=== PATIENT | female | born 1950 | race Caucasian/White ===

== ENCOUNTER 2021-02-13 23:40 | Inpatient (IN) | payer MEDICARE, OTHER ==
[~2021-02-13] VITALS: Ht 152.4 cm; Wt 97.1 kg
[~2021-02-13 23:40] MED LIST: CARV25TA PO; NEXIUM; SYNTHROID; WELLBUTRIN
--- NOTE | 2021-02-14 | NUR ---
Dr. Bain at bedside for MSE.
[2021-02-14] MEDS ORDERED: IV NORMAL SALINE 1000 ML BAG IV ONE ×2 (00:15→04:00)
[2021-02-14 00:27] LABS: HEMATOCRIT 44.2 % (31.2-41.9); MEAN CORPUSCULAR HEMOGLOBIN 29.5 uug (24.7-32.8); MEAN CORPUSCULAR VOLUME 92.2 fL (75.5-95.3); PLATELET COUNT (AUTO) 256 K/uL (179-408)
--- NOTE | 2021-02-14 00:30 | NUR ---
Pt provided urine sample, sent to lab.
[2021-02-14 00:40] LABS: CREATININE 1.1 mg/dL (0.6-1.3); POTASSIUM 4.1 mmol/L (3.5-5.1)
[2021-02-14 00:52] LABS: BILIRUBIN,DIRECT 0.1 mg/dL (0.0-0.2); BILIRUBIN,TOTAL 0.3 mg/dL (0.2-1.0); TOTAL PROTEIN, SERUM 7.6 g/dL (6.4-8.2)
[2021-02-14 00:57] LABS: *BILIRUBIN,URIN NEGATIVE (NEGATIVE); *CLARITY,URINE CLOUDY (CLEAR); *COLOR,URINE YELLOW (YELLOW); *KETONES,URINE TRACE (NEGATIVE); *UROBILINOGEN,URINE 0.2 E.U./dl (NORMAL); LEUKOCYTE ESTERASE ,URINE 1+ (NEGATIVE); NITRITE, URINE NEGATIVE (NEGATIVE); PH,URINE 5.5 (5.0-8.0); UGLUCOSE NEGATIVE (NEGATIVE)
[2021-02-14 01:05] LABS: *BLOOD, URINE TRACE (NEGATIVE)
[2021-02-14 01:14] LABS: WBC,URINE 20-50 /HPF (0-3)
[2021-02-14 01:15] LABS: BACTERIA,URINE MODERATE /HPF (NONE SEEN); SQUAMOUS EPITHELIAL CELL,UR MANY /HPF (NONE SEEN); URIC ACID CRYSTALS,URINE MODERATE /HPF (NONE SEEN)
[2021-02-14] MEDS ORDERED: CEFTRIAXONE 1 G in IV DEXTROSE 5% 50 ML IV ONE (01:45)
[2021-02-14] MEDS ORDERED: MAGNESIUM HYDROXIDE 30 ML LIQUID UDC PO PRN (01:45)
[2021-02-14] MEDS ORDERED: ONDANSETRON 4 MG/2 ML VIAL IV PRN (01:45)
[2021-02-14] MEDS ORDERED: CEFTRIAXONE /D5W 50ML IVPB **ER PYXIS IV ONE ×2 (02:05→15:42)
[2021-02-14] MEDS ORDERED: PANTOPRAZOLE SODIUM 40 MG VIAL IV ONE (02:15)
[2021-02-14] MEDS ORDERED: ONDANSETRON 4 MG/2 ML VIAL IV ONE (02:15)
[2021-02-14] MEDS ORDERED: PANTOPRAZOLE SODIUM 40 MG VIAL ONE (02:19)
[2021-02-14] MEDS ORDERED: ONDANSETRON 4 MG/2 ML VIAL ONE (02:19)
[2021-02-14] MEDS ORDERED: LEVO50TA PO (02:27)
[2021-02-14] MEDS ORDERED: CARV12.52 PO (02:27)
[2021-02-14] MEDS ORDERED: OMEP40CA21 PO (02:27)
[2021-02-14] MEDS ORDERED: janumet PO (02:27)
[2021-02-14] MEDS ORDERED: CLON1TAB12 PO (02:28)
[2021-02-14] MEDS ORDERED: PREG100C PO (02:28)
[2021-02-14] MEDS ORDERED: CARVEDILOL 3.125 MG TABLET PO ONE (03:45)
[2021-02-14] MEDS ORDERED: CARVEDILOL 12.5 MG TABLET ONE ×2 (03:47→15:31)
--- NOTE | 2021-02-14 07:05 | NUR ---
Report given to Hali sanders.
--- NOTE | 2021-02-14 07:45 | NUR ---
Pt c/o migraine headache and requesting to have Fioricet. Place a call to Dr Rogers, order recieved.
[2021-02-14] MEDS: BUTALB/ACETAMINOPHEN/CAFFEINE CAPSULE PO PRN (08:29)
[2021-02-14] MEDS ORDERED: BUTALB/ACETAMINOPHEN/CAFFEINE CAPSULE ONE (08:32)
[2021-02-14] MEDS: IV NS 1000 ML 1,000 ML IV PRN ×2 (08:39→20:04)
[2021-02-14] MEDS: ENOXAPARIN SODIUM 40 MG/0.4 ML DISP.SYRIN SQ SCH ×2 (09:00→09:35)
[2021-02-14 09:27] LABS: HEMATOCRIT 38.1 % (31.2-41.9); MEAN CORPUSCULAR HEMOGLOBIN 30.1 uug (24.7-32.8); MEAN CORPUSCULAR VOLUME 92.4 fL (75.5-95.3); PLATELET COUNT (AUTO) 211 K/uL (179-408)
--- NOTE | 2021-02-14 09:30 | NUR ---
Pt states feeling better and her migraine headache is gone.
[2021-02-14 09:42] LABS: MAGNESIUM 1.6 mg/dL (1.8-2.4); PHOSPHOROUS 2.9 mg/dL (2.5-4.9); POTASSIUM 4.2 mmol/L (3.5-5.1)
[2021-02-14] MEDS ORDERED: ENOXAPARIN SODIUM 40 MG/0.4 ML DISP.SYRIN SQ ONE (09:42)
--- NOTE | 2021-02-14 09:44 | NUR ---
Pt refuse taking Lovenox, states having bad gastritis and worried about bleeding. Pt able to walk w/o assisst.
--- NOTE | 2021-02-14 10:00 | NUR ---
Dr Rogers made awre of Pt's refusal of Lovenox med. No new order received.
--- NOTE | 2021-02-14 10:06 | NUR ---
Patient is resting comfortably in bed with eyes closed, NAD noted.
--- NOTE | 2021-02-14 13:10 | NUR ---
Pt IV on RT AC leaking, removed and place a new HL on RT FA.
--- NOTE | 2021-02-14 13:25 | NUR ---
Spoke to Dr Rogers regarding Pt's home meds.
[2021-02-14] MEDS ORDERED: CLONAZEPAM 0.5 MG TABLET PO PRN (13:45)
--- NOTE | 2021-02-14 15:25 | NUR ---
Pt reqested to have her medication, Coreg 12.5 mg now, since she feels palpitation if not taking it. Coreg 12.5 mg Po given.
[2021-02-14] MEDS: CARVEDILOL 12.5 MG TABLET PO SCH (15:28)
[2021-02-14] MEDS ORDERED: AZITHROMYCIN 500MG/ D5W 250ML IVPB **ER PYXIS ONLY IV ONE (15:41)
--- NOTE | 2021-02-14 18:19 | NUR ---
This is an admission note for 70 year old female patient of Doctor _ from home for a urinary tract infection, possible sepsis. Temperature has been elevated 99.5, but is normal at this time. Will endorse care to next team nurse. Shayne Baldwin RN
[2021-02-14 18:40] VITALS: BP 172/74
[2021-02-14 20:00] VITALS: BP 138/55
[2021-02-14] MEDS: PREGABALIN 100 MG CAPSULE PO SCH (20:05)
[2021-02-14] MEDS: ACIDOPHILUS/BULGARICUS CHEW TAB PO SCH (21:05)
[2021-02-15] MEDS ORDERED: CEFTRIAXONE /D5W 50ML IVPB **ER PYXIS IV ONE (02:50)
[2021-02-15] MEDS: CEFTRIAXONE 1 G in IV DEXTROSE 5% 50 ML IV SCH (03:04)
[2021-02-15 04:00] VITALS: BP_SYST 114; BP_SYST 121; BP_DIAS 57; BP_DIAS 63
--- NOTE | 2021-02-15 05:08 | NUR ---
Pt slept throughout the night. Denies pain or SOB. Able to make needs known. Patient is BRP and walks with a steady gait. Tolerated all medications given. No other issues or concerns at this time. Will endorse to day shift.
[2021-02-15] MEDS: ACIDOPHILUS/BULGARICUS CHEW TAB PO SCH ×3 (06:12→21:07)
[2021-02-15] MEDS: PANTOPRAZOLE SODIUM 40 MG TABLET.DR PO SCH (06:12)
[2021-02-15] MEDS: LEVOTHYROXINE SODIUM 50 MCG TABLET PO SCH (06:12)
[2021-02-15 06:34] LABS: HEMATOCRIT 37.1 % (31.2-41.9); MEAN CORPUSCULAR HEMOGLOBIN 30.2 uug (24.7-32.8); MEAN CORPUSCULAR VOLUME 92.2 fL (75.5-95.3); PLATELET COUNT (AUTO) 191 K/uL (179-408)
[2021-02-15 06:53] LABS: CREATININE 0.8 mg/dL (0.6-1.3); POTASSIUM 3.9 mmol/L (3.5-5.1)
[2021-02-15] MEDS: CALCIUM CARBONATE 600 MG TABLET PO SCH (08:01)
[2021-02-15] MEDS: CARVEDILOL 12.5 MG TABLET PO SCH ×2 (08:01→17:02)
[2021-02-15] MEDS: ENOXAPARIN SODIUM 40 MG/0.4 ML DISP.SYRIN SQ SCH ×2 (08:02→08:40)
[2021-02-15 11:39] VITALS: BP 98/59
[2021-02-15] MEDS ORDERED: INSULIN REGULAR, HUMAN 300 UNIT/3 ML VIAL SQ PRN (12:00)
[2021-02-15] MEDS ORDERED: DEXTROSE 50% 50 ML DISP.SYRIN IV PRN (12:00)
[2021-02-15] MEDS: BLOOD SUGAR DIAGNOSTIC 1 EACH STRIP VI SCH ×3 (12:10→20:04)
[2021-02-15] MEDS ORDERED: SUCRALFATE 1 G/10 ML LIQUID UDC GT SCH (12:15)
[2021-02-15 15:53] VITALS: BP 153/73
[2021-02-15] MEDS: SUCRALFATE 1 G TABLET PO SCH ×2 (16:23→20:00)
[2021-02-15] MEDS ORDERED: BUTALB/ACETAMINOPHEN/CAFFEINE CAPSULE PO PRN (16:30)
[2021-02-15] MEDS: BUTALB/ACETAMINOPHEN/CAFFEINE CAPSULE PO PRN (16:31)
[2021-02-15 20:00] VITALS: BP 147/72
[2021-02-15] MEDS: PREGABALIN 100 MG CAPSULE PO SCH (20:00)
[2021-02-15] MEDS: NYSTATIN POWDER 15 GM BOTTLE TOP SCH (20:04)
[2021-02-16] MEDS: CEFTRIAXONE 1 G in IV DEXTROSE 5% 50 ML IV SCH (01:09)
[2021-02-16 04:00] VITALS: BP 131/59
[2021-02-16] MEDS: ACIDOPHILUS/BULGARICUS CHEW TAB PO SCH ×3 (05:06→21:12)
[2021-02-16] MEDS: LEVOTHYROXINE SODIUM 50 MCG TABLET PO SCH (06:02)
[2021-02-16] MEDS: PANTOPRAZOLE SODIUM 40 MG TABLET.DR PO SCH (06:02)
[2021-02-16] MEDS: BLOOD SUGAR DIAGNOSTIC 1 EACH STRIP VI SCH ×4 (06:23→20:46)
[2021-02-16 07:27] LABS: HEMATOCRIT 40.1 % (31.2-41.9); MEAN CORPUSCULAR HEMOGLOBIN 30.4 uug (24.7-32.8); MEAN CORPUSCULAR VOLUME 91.1 fL (75.5-95.3); PLATELET COUNT (AUTO) 214 K/uL (179-408)
[2021-02-16] MEDS: SUCRALFATE 1 G TABLET PO SCH ×4 (07:30→20:40)
--- NOTE | 2021-02-16 07:30 | NUR ---
RECEIVED AWAKE IN BED IN PLEASANT MOOD. NO ACUTE DISTRESS. DENIES PAIN AT THIS TIME. SHE IS COMFORTABLE. BED LOW AND LOCKED. CALL LIGHT WITHIN REACH. WILL CONTINUE TO MONITOR.
[2021-02-16 07:50] LABS: CREATININE 0.8 mg/dL (0.6-1.3); POTASSIUM 3.9 mmol/L (3.5-5.1)
[2021-02-16] MEDS: CARVEDILOL 12.5 MG TABLET PO SCH ×2 (08:30→17:32)
[2021-02-16] MEDS: LINAGLIPTIN 5 MG TABLET PO SCH (08:31)
[2021-02-16] MEDS: CALCIUM CARBONATE 600 MG TABLET PO SCH (08:35)
[2021-02-16] MEDS: NYSTATIN POWDER 15 GM BOTTLE TOP SCH ×2 (09:24→20:51)
[2021-02-16 11:39] VITALS: BP 137/49
[2021-02-16 15:25] VITALS: BP 144/63
--- NOTE | 2021-02-16 18:46 | NUR ---
ALERT AND ORIENTED X4. NO ACUTE DISTRESS. DUE MEDS GIVEN AND NO ADVERSE REACTIONS NOTED. DENIES PAIN AT THIS TIME. NEEDS ATTENDED. WILL ENDORSE ACCORDINGLY.
[2021-02-16 20:03] VITALS: BP 141/58
[2021-02-16] MEDS: PREGABALIN 100 MG CAPSULE PO SCH (20:41)
[2021-02-17] MEDS: ACETAMINOPHEN 325 MG TABLET PO PRN ×2 (01:53→09:10)
[2021-02-17] MEDS: CEFTRIAXONE 1 G in IV DEXTROSE 5% 50 ML IV SCH (01:53)
[2021-02-17] MEDS ORDERED: hydrALAZINE HCL 50 MG TABLET PO PRN (03:45)
[2021-02-17 04:03] VITALS: BP 187/71
--- NOTE | 2021-02-17 04:54 | NUR ---
Patient alert and verbally responsive. No s/s of distress noted.On RA.Iv on right FA noted infiltrated. Dc'd line and inserted new Iv line on left FA 22g with good blood return. Infused IV ATB as ordered.No a/r noted.Patient c/o pain .Medicated with tylenol. BP noted >[address] Almanzar notified with new order received noted and carried out.
[2021-02-17] MEDS: ACIDOPHILUS/BULGARICUS CHEW TAB PO SCH ×2 (05:43→13:21)
[2021-02-17] MEDS: LEVOTHYROXINE SODIUM 50 MCG TABLET PO SCH (06:07)
[2021-02-17] MEDS: PANTOPRAZOLE SODIUM 40 MG TABLET.DR PO SCH (06:07)
[2021-02-17] MEDS: SUCRALFATE 1 G TABLET PO SCH ×2 (06:34→11:36)
[2021-02-17] MEDS: BLOOD SUGAR DIAGNOSTIC 1 EACH STRIP VI SCH ×2 (06:35→11:50)
--- NOTE | 2021-02-17 07:30 | NUR ---
RECEIVED RESTING BUT EASILY AROUSABLE. NO RESPIRATORY DISTRESS. IV INTACT. KEPT COMFORTABLE. BED LOW AND LOCKED. CALL LIGHT WITHIN REACH. WILL CONTINUE TO MONITOR.
[2021-02-17 07:58] LABS: HEMATOCRIT 41.3 % (31.2-41.9); MEAN CORPUSCULAR VOLUME 90.6 fL (75.5-95.3); PLATELET COUNT (AUTO) 252 K/uL (179-408)
[2021-02-17 08:15] LABS: CREATININE 0.7 mg/dL (0.6-1.3); POTASSIUM 3.9 mmol/L (3.5-5.1)
[2021-02-17] MEDS: CALCIUM CARBONATE 600 MG TABLET PO SCH (08:32)
[2021-02-17] MEDS: LINAGLIPTIN 5 MG TABLET PO SCH (08:32)
[2021-02-17] MEDS: CARVEDILOL 12.5 MG TABLET PO SCH (08:33)
[2021-02-17 08:38] VITALS: BP 157/79
[2021-02-17] MEDS: NYSTATIN POWDER 15 GM BOTTLE TOP SCH (09:11)
[2021-02-17] MEDS: BUTALB/ACETAMINOPHEN/CAFFEINE CAPSULE PO PRN (09:21)
[2021-02-17] MEDS ORDERED: NITR100C PO (10:57)
[2021-02-17 11:41] VITALS: BP 130/61
[2021-02-17] MEDS ORDERED: NITROFURANTOIN/NITROFURAN MAC 100 MG CAPSULE PO SCH (13:26)
--- NOTE | 2021-02-17 14:35 | NUR ---
PATIENT DISCHARGED TO HOME. ALERT AND ORIENTED X4 VERY PLEASANT. DENIES PAIN OR SOB. MEDICATION AND FOLLOW UP INSTRUCTIONS GIVEN TO PATIENT. SHE VERBALIZED UNDERSTANDING. PATIENT PICKED UP BY IN STABLE CONDITION.
== END 2021-02-17 14:35 | disposition home or self-care (01) | DRG 872 ==
LOC: ER 23:44 → TRANSITION 02-14 08:08 → MEDSURG3 02-14 17:12
PROVIDERS: ADMIT Nurse Practitioner Acute Care; ATTEND Nurse Practitioner Family
DX: A41.9 Sepsis, unspecified organism (principal); N39.0 Urinary tract infection, site not specified; Z68.41 Body mass index [BMI] 40.0-44.9, adult; E87.0 Hyperosmolality and hypernatremia; E66.01 Morbid (severe) obesity due to excess calories; B96.20 Unspecified Escherichia coli [E. coli] as the cause of diseases classified elsewhere; E03.9 Hypothyroidism, unspecified; E78.5 Hyperlipidemia, unspecified; E83.51 Hypocalcemia; F41.9 Anxiety disorder, unspecified; G47.33 Obstructive sleep apnea (adult) (pediatric); I10 Essential (primary) hypertension; K29.70 Gastritis, unspecified, without bleeding; F32.9 Major depressive disorder, single episode, unspecified; Z20.822 Contact with and (suspected) exposure to COVID-19; Z87.442 Personal history of urinary calculi; Z71.3 Dietary counseling and surveillance; K57.30 Diverticulosis of large intestine without perforation or abscess without bleeding; R10.9 Unspecified abdominal pain
CPT/HCPCS: 36415; 70030-TC; 71045; 82306; 83605; 83690; 83735; 84100; 85025; 85730; 87040; 87077; 87086; 93005; C9113; G0378; J0456; J0696; J1650; J1815; J2405; J7030; J7060

== ENCOUNTER 2023-11-16 11:33 | Emergency (ER) | payer MEDICARE, OTHER ==
[~2023-11-16] VITALS: Ht 154.9 cm; Wt 84.4 kg
[~2023-11-16 11:33] MED LIST changes: +CARV12.52 PO; -CARV25TA PO; +CLON1TAB12 PO; +LEVO50TA PO; -NEXIUM; +NITR100C PO; +OMEP40CA21 PO; +PREG100C PO; -SYNTHROID; -WELLBUTRIN; +janumet PO
[2023-11-16 12:16] LABS: *BILIRUBIN,URIN NEGATIVE (NEGATIVE); *CLARITY,URINE CLEAR (CLEAR); *COLOR,URINE YELLOW (YELLOW); *KETONES,URINE NEGATIVE (NEGATIVE); *PROTEIN,URINE 1+ (NEGATIVE); *UROBILINOGEN,URINE 0.2 E.U./dl (NORMAL); LEUKOCYTE ESTERASE ,URINE 1+ (NEGATIVE); NITRITE, URINE NEGATIVE (NEGATIVE); PH,URINE 5.5 (5.0-8.0); UGLUCOSE NEGATIVE (NEGATIVE)
[2023-11-16 12:17] LABS: *BLOOD, URINE TRACE (NEGATIVE)
[2023-11-16 12:49] LABS: BACTERIA,URINE FEW /HPF (NONE SEEN); RBC,URINE 0-3 /HPF (0-3); SQUAMOUS EPITHELIAL CELL,UR MANY /HPF (NONE SEEN)
[2023-11-16] MEDS ORDERED: CIPR-262 PO (12:58)
[2023-11-16 14:02] VITALS: BP 160/87; TEMP 98; O2SAT 99
== END 2023-11-16 14:02 | disposition home or self-care (01) ==
LOC: ER 11:33
DX: N10 Acute pyelonephritis (principal); K21.9 Gastro-esophageal reflux disease without esophagitis; I10 Essential (primary) hypertension; F32.A Depression, unspecified; E03.9 Hypothyroidism, unspecified; Z98.890 Other specified postprocedural states; Z79.899 Other long term (current) drug therapy; Z88.1 Allergy status to other antibiotic agents
CPT/HCPCS: A4606; A4663

== ENCOUNTER 2024-04-02 11:29 | Emergency (ER) | payer MEDICARE, OTHER ==
[~2024-04-02] VITALS: Ht 157.5 cm; Wt 82.6 kg
[~2024-04-02 11:29] MED LIST changes: +CIPR-262 PO
[2024-04-02] MEDS ORDERED: SITA1TAB6 PO (11:40)
[2024-04-02] MEDS ORDERED: hydrALAZINE HCL 20 MG/1 ML VIAL ONE (12:00)
[2024-04-02] MEDS ORDERED: ACETAMINOPHEN 500 MG TABLET ONE (12:00)
[2024-04-02 12:21] LABS: BASOPHILS % (AUTO) 0.7 % (0.0-2.0); EOSINOPHILS # (AUTO) 0.1 K/uL (0.0-0.7); EOSINOPHILS % (AUTO) 1.6 % (0.0-7.0); HEMOGLOBIN 12.8 g/dL (10.9-14.3); LYMPHOCYTES # (AUTO) 1.9 K/uL (0.8-4.8); LYMPHOCYTES % (AUTO) 27.4 % (20.5-51.5); MEAN CORPUSCULAR HEMOGLOBIN 30.9 uug (24.7-32.8); MEAN CORPUSCULAR HGB CONC 34 g/dL (32.3-35.6); MEAN CORPUSCULAR VOLUME 91.6 fL (75.5-95.3); MONOCYTES # (AUTO) 0.6 K/uL (0.1-1.30); MONOCYTES % (AUTO) 9.4 % (0.0-11.0); NEUTROPHILS # (AUTO) 4.1 K/uL (1.8-8.9); NEUTROPHILS % (AUTO) 60.9 % (38.5-71.5); PLATELET COUNT (AUTO) 278 K/uL (179-408); RED BLOOD CELL COUNT(AUTO) 4.15 MIL/uL (3.63-4.92); RED CELL DISTRIBUTION WIDTH 14.2 % (12.3-17.7); WHITE BLOOD COUNT (AUTO) 6.8 K/uL (3.8-11.8)
[2024-04-02 12:31] LABS: CALCIUM 8.8 mg/dL (8.5-10.1); CARBON DIOXIDE 28 mmol/L (21-32); CHLORIDE 104 mmol/L (98-107); CREATININE 0.7 mg/dL (0.6-1.3); GLUCOSE 117 mg/dL (74-106); POTASSIUM 4.1 mmol/L (3.5-5.1); SODIUM SERUM 141 mmol/L (136-145); UREA NITROGEN, BLOOD 9 mg/dL (7-18)
[2024-04-02 12:32] LABS: DIFFERENTIAL COMMENT 1
[2024-04-02] MEDS: ACETAMINOPHEN 500 MG TABLET PO ONE (13:50)
[2024-04-02] MEDS ORDERED: KETOROLAC TROMETHAMINE 15 MG INJ ONE (13:54)
[2024-04-02] MEDS: KETOROLAC TROMETHAMINE 15 MG INJ IVP ONE (13:55)
[2024-04-02] MEDS: hydrALAZINE HCL 20 MG/1 ML VIAL IV ONE (14:11)
[2024-04-02 14:21] VITALS: BP 156/69; O2SAT 98
== END 2024-04-02 14:20 | disposition home or self-care (01) ==
LOC: ER 11:29
DX: I10 Essential (primary) hypertension (principal); R51.9 Headache, unspecified; F41.9 Anxiety disorder, unspecified; E11.9 Type 2 diabetes mellitus without complications; F32.A Depression, unspecified; E03.9 Hypothyroidism, unspecified; Z87.442 Personal history of urinary calculi; Z98.890 Other specified postprocedural states; Z79.899 Other long term (current) drug therapy; Z60.2 Problems related to living alone; Z88.1 Allergy status to other antibiotic agents
CPT/HCPCS: 99285; 70450; 96374; 71045; 80048; 85025; 84484; 36415; 93005; 72125; J1885; A4606; A4663; A9150; J0360

== ENCOUNTER 2025-04-02 10:30 | Inpatient (IN) | payer MEDICARE, OTHER ==
[~2025-04-02] VITALS: Ht 154.9 cm; Wt 80.7 kg
[~2025-04-02 10:30] MED LIST changes: +SITA1TAB6 PO; -janumet PO
[2025-04-02] MEDS ORDERED: ONDANSETRON 4 MG/2 ML VIAL ONE ×2 (11:09→12:45)
[2025-04-02] MEDS ORDERED: NITROGLYCERIN OINT 1 GM PACKET TP ONE (11:09)
[2025-04-02] MEDS ORDERED: ASPIRIN 81 MG TAB.CHEW ONE (11:09)
[2025-04-02] MEDS ORDERED: MORPHINE SULFATE 4 MG/1 ML DISP.SYRIN ONE ×2 (11:10→12:45)
[2025-04-02 11:18] LABS: PLATELET COUNT (AUTO) 261 K/uL (179-408); RED BLOOD CELL COUNT(AUTO) 4.43 MIL/uL (3.63-4.92); RED CELL DISTRIBUTION WIDTH 13.5 % (12.3-17.7); WHITE BLOOD COUNT (AUTO) 7.9 K/uL (3.8-11.8)
[2025-04-02] MEDS: ASPIRIN 81 MG TAB.CHEW PO ONE (11:19)
[2025-04-02] MEDS: NITROGLYCERIN OINT 1 GM PACKET TP ONE (11:19)
[2025-04-02] MEDS: MORPHINE SULFATE 4 MG/1 ML DISP.SYRIN IV ONE ×2 (11:19→12:46)
[2025-04-02] MEDS: ONDANSETRON 4 MG/2 ML VIAL IV ONE ×2 (11:19→12:46)
[2025-04-02 11:27] LABS: CREATININE 0.8 mg/dL (0.6-1.3); SODIUM SERUM 143 mmol/L (136-145); UREA NITROGEN, BLOOD 16 mg/dL (7-18)
[2025-04-02 11:32] LABS: ASPARTATE AMINOTRANSFERASE 18 U/L (15-37); TOTAL PROTEIN, SERUM 7.3 g/dL (6.4-8.2)
[2025-04-02] MEDS ORDERED: SWABABLE VALVE TRANSFER SET EA MC ONE (12:09)
[2025-04-02] MEDS ORDERED: IV NORMAL SALINE 250 ML IV ONE (12:09)
[2025-04-02] MEDS ORDERED: IOHEXOL 350 100 ML INFUS..BTL ONE (12:09)
[2025-04-02] MEDS ORDERED: ACET-2605 PO (12:26)
[2025-04-02] MEDS ORDERED: TRAM50TA2 PO (12:26)
[2025-04-02] MEDS ORDERED: BIOT10TA PO (12:26)
[2025-04-02] MEDS ORDERED: SACU1TAB4 PO (12:26)
[2025-04-02] MEDS ORDERED: CLON0.1T PO (12:35)
[2025-04-02] MEDS ORDERED: ESTR42.511 VG (12:35)
[2025-04-02] MEDS ORDERED: BUTA-284 PO (12:35)
[2025-04-02] MEDS ORDERED: CHOL400C8 PO (12:35)
[2025-04-02] MEDS ORDERED: MAGN100T PO (12:35)
[2025-04-02] MEDS ORDERED: HEPARIN/D5W DRIP 500 ML IV PRN (13:15)
[2025-04-02 15:11] VITALS: BP 113/54
[2025-04-02] MEDS ORDERED: ACETAMINOPHEN 325 MG TABLET PO PRN (15:30)
[2025-04-02] MEDS ORDERED: DEXTROSE 50% 50 ML DISP.SYRIN IV PRN (15:30)
[2025-04-02] MEDS ORDERED: CLONAZEPAM 1 MG TABLET PO PRN (15:30)
[2025-04-02] MEDS ORDERED: ONDANSETRON 4 MG/2 ML VIAL IV PRN (15:30)
[2025-04-02] MEDS: SUCRALFATE 1 G/10 ML LIQUID UDC GT SCH (15:51)
[2025-04-02 17:00] VITALS: BP 138/65; TEMP 98; O2SAT 93
[2025-04-02] MEDS ORDERED: Medication Not On Formulary EA (Sacubitril/Valsartan (Entresto 97 mg-103 mg Tablet) 1 EA PO SCH (17:00)
[2025-04-02] MEDS ORDERED: CARVEDILOL 12.5 MG TABLET PO SCH (17:00)
[2025-04-02] MEDS ORDERED: CLONAZEPAM 0.5 MG TABLET PO PRN (17:00)
[2025-04-02] MEDS: BLOOD SUGAR DIAGNOSTIC 1 EACH STRIP VI SCH (17:14)
[2025-04-02] MEDS: INSULIN REGULAR, HUMAN 1000 UNIT/10 ML VIAL SQ PRN (17:15)
[2025-04-02] MEDS: CARVEDILOL 25 MG TABLET PO SCH (17:21)
[2025-04-02] MEDS: SACUBITRIL/VALSARTAN 24 MG-26 TABLET PO SCH (17:22)
[2025-04-02 19:25] VITALS: BP 134/53; TEMP 98.2; O2SAT 93
[2025-04-02] MEDS: PREGABALIN 100 MG CAPSULE PO SCH (20:40)
[2025-04-02] MEDS: SUCRALFATE 1 G/10 ML LIQUID UDC PO SCH (20:40)
[2025-04-02] MEDS: ENOXAPARIN SODIUM 40 MG/0.4 ML DISP.SYRIN SQ SCH (20:41)
[2025-04-02] MEDS: BUTALB/ACETAMINOPHEN/CAFFEINE CAPSULE PO PRN (20:58)
[2025-04-03 00:17] VITALS: BP 117/62; TEMP 97.6; O2SAT 93
[2025-04-03 04:08] VITALS: BP 111/52; TEMP 98; TEMP 98.4; O2SAT 93; O2SAT 96
[2025-04-03] MEDS: PANTOPRAZOLE SODIUM 40 MG TABLET.DR PO SCH (06:07)
[2025-04-03] MEDS: LEVOTHYROXINE SODIUM 50 MCG TABLET PO SCH (06:07)
[2025-04-03 06:43] LABS: PLATELET COUNT (AUTO) 231 K/uL (179-408); RED BLOOD CELL COUNT(AUTO) 4.15 MIL/uL (3.63-4.92); RED CELL DISTRIBUTION WIDTH 14.0 % (12.3-17.7); WHITE BLOOD COUNT (AUTO) 7.2 K/uL (3.8-11.8)
[2025-04-03 07:33] LABS: CREATININE 0.8 mg/dL (0.6-1.3); SODIUM SERUM 141 mmol/L (136-145); UREA NITROGEN, BLOOD 18 mg/dL (7-18)
[2025-04-03 08:00] VITALS: BP 115/50; TEMP 97.8; O2SAT 96
[2025-04-03] MEDS: ASPIRIN 81 MG TAB.CHEW PO SCH (08:51)
[2025-04-03 08:57] VITALS: BP 115/50
[2025-04-03] MEDS ORDERED: ASPI81TA49 PO (10:38)
[2025-04-03] MEDS ORDERED: FENO50CA4 PO (10:38)
== END 2025-04-03 11:15 | disposition home or self-care (01) | DRG 305 ==
LOC: ER 10:30 → TELE3 16:32
PROVIDERS: ADMIT Nurse Practitioner Family; ATTEND Nurse Practitioner Family
DX: I16.0 Hypertensive urgency (principal); E66.9 Obesity, unspecified; F41.9 Anxiety disorder, unspecified; Z68.33 Body mass index [BMI] 33.0-33.9, adult; Z63.79 Other stressful life events affecting family and household; G47.33 Obstructive sleep apnea (adult) (pediatric); E03.9 Hypothyroidism, unspecified; K29.70 Gastritis, unspecified, without bleeding; N28.1 Cyst of kidney, acquired; Z79.899 Other long term (current) drug therapy; Z79.84 Long term (current) use of oral hypoglycemic drugs; Z79.890 Hormone replacement therapy; E11.9 Type 2 diabetes mellitus without complications; E78.5 Hyperlipidemia, unspecified; I11.9 Hypertensive heart disease without heart failure; I70.0 Atherosclerosis of aorta; M15.9 Polyosteoarthritis, unspecified
CPT/HCPCS: 36415; 71045; 71275; 83735; 84100; 84443; 84484; 85025; 85730; 93307; A4606; A4663; G0378; J1650; J1815; J2270; J2405; Q9967

== ENCOUNTER 2025-07-07 09:22 | Inpatient (IN) | payer MEDICARE, OTHER ==
[~2025-07-07] VITALS: Ht 152.4 cm; Wt 79.8 kg
[~2025-07-07 09:22] MED LIST changes: +ACET-2605 PO; +ASPI81TA49 PO; +BIOT10TA PO; +BUTA-284 PO; -CIPR-262 PO; +CLON0.1T PO; +ESTR42.511 VG; +FENO50CA4 PO; +MAGN100T PO; -NITR100C PO; +SACU1TAB4 PO; +TRAM50TA2 PO; +[UNRECOGNIZED DRUG - CODE] PO
[2025-07-07] MEDS ORDERED: [UNRECOGNIZED DRUG - CODE] TP (10:02)
[2025-07-07] MEDS ORDERED: FAMO20TA8 PO (10:02)
[2025-07-07] MEDS ORDERED: [UNRECOGNIZED DRUG - CODE] EACHEYE (10:02)
[2025-07-07] MEDS ORDERED: SIMV-46 PO (10:02)
[2025-07-07] MEDS ORDERED: NITROGLYCERIN OINT 1 GM PACKET TP ONE ×2 (10:04→13:56)
[2025-07-07] MEDS ORDERED: CLONIDINE HCL 0.1 MG TABLET ONE (10:05)
[2025-07-07] MEDS ORDERED: MAGNESIUM SULFATE/D5W 200 ML ONE (10:05)
[2025-07-07 10:14] LABS: PLATELET COUNT (AUTO) 279 K/uL (179-408); RED BLOOD CELL COUNT(AUTO) 4.48 MIL/uL (3.63-4.92); RED CELL DISTRIBUTION WIDTH 14.1 % (12.3-17.7); WHITE BLOOD COUNT (AUTO) 7.0 K/uL (3.8-11.8)
[2025-07-07] MEDS: MAGNESIUM SULFATE 2 GM in IV DEXTROSE 5% 100 ML IV ONE (10:19)
[2025-07-07] MEDS: CLONIDINE HCL 0.1 MG TABLET PO ONE (10:20)
[2025-07-07] MEDS: NITROGLYCERIN OINT 1 GM PACKET TP ONE ×2 (10:20→14:04)
[2025-07-07 10:29] LABS: CREATININE 0.8 mg/dL (0.6-1.3); SODIUM SERUM 146 mmol/L (136-145); UREA NITROGEN, BLOOD 7 mg/dL (7-18)
[2025-07-07 10:35] LABS: ASPARTATE AMINOTRANSFERASE 14 U/L (15-37); TOTAL PROTEIN, SERUM 7.2 g/dL (6.4-8.2)
[2025-07-07 10:40] LABS: *BILIRUBIN,URIN NEGATIVE (NEGATIVE); *BLOOD, URINE NEGATIVE (NEGATIVE); *CLARITY,URINE CLEAR (CLEAR); *COLOR,URINE YELLOW (YELLOW); *KETONES,URINE NEGATIVE (NEGATIVE); *PROTEIN,URINE NEGATIVE (NEGATIVE); *UROBILINOGEN,URINE 0.2 E.U./dl (NORMAL); LEUKOCYTE ESTERASE ,URINE TRACE (NEGATIVE); NITRITE, URINE NEGATIVE (NEGATIVE); UGLUCOSE NEGATIVE (NEGATIVE)
[2025-07-07 10:44] LABS: SQUAMOUS EPITHELIAL CELL,UR FEW /HPF (NONE SEEN)
[2025-07-07] MEDS ORDERED: MAGNESIUM SULFATE/D5W 100 ML ONE (13:11)
[2025-07-07] MEDS: MAGNESIUM SULFATE/D5W 100 ML IV SCH (13:14)
[2025-07-07] MEDS ORDERED: ONDANSETRON 4 MG/2 ML VIAL IV PRN (13:45)
[2025-07-07] MEDS ORDERED: DOSING PER PHARMACY-ENOXAPARIN XX PRN (13:45)
[2025-07-07] MEDS ORDERED: MAGNESIUM HYDROXIDE 30 ML LIQUID UDC PO PRN (13:45)
[2025-07-07] MEDS ORDERED: REMEDY ESSENTIAL ZINC PASTE 113 GM TP PRN (13:45)
[2025-07-07] MEDS ORDERED: ACETAMINOPHEN 325 MG TABLET PO PRN (13:45)
[2025-07-07] MEDS ORDERED: CEFTRIAXONE /D5W 50ML IVPB **ER PYXIS IV ONE (13:56)
[2025-07-07] MEDS ORDERED: ASPIRIN 81 MG TAB.CHEW ONE (13:56)
[2025-07-07] MEDS ORDERED: ENOXAPARIN SODIUM 80 MG/0.8 ML DISP.SYRIN SQ ONE (13:57)
[2025-07-07] MEDS: ASPIRIN 81 MG TAB.CHEW PO ONE (13:58)
[2025-07-07] MEDS ORDERED: CLONAZEPAM 1 MG TABLET PO PRN (14:00)
[2025-07-07] MEDS: ENOXAPARIN SODIUM 80 MG/0.8 ML DISP.SYRIN SQ ONE (14:07)
[2025-07-07] MEDS ORDERED: SWABABLE VALVE TRANSFER SET EA MC ONE (14:26)
[2025-07-07] MEDS ORDERED: IV NORMAL SALINE 250 ML IV ONE (14:26)
[2025-07-07] MEDS ORDERED: IOHEXOL 350 100 ML INFUS..BTL ONE (14:26)
[2025-07-07] MEDS ORDERED: DEXTROSE 50% 50 ML DISP.SYRIN IV PRN (15:30)
[2025-07-07] MEDS ORDERED: INSULIN REGULAR, HUMAN 300 UNITS/3 ML VIAL SQ PRN (15:30)
[2025-07-07] MEDS ORDERED: CARVEDILOL 12.5 MG TABLET PO SCH (17:00)
[2025-07-07 17:03] VITALS: BP 138/64
[2025-07-07] MEDS ORDERED: CLONAZEPAM 0.5 MG TABLET PO PRN (17:15)
[2025-07-07] MEDS ORDERED: BUTALB/ACETAMINOPHEN/CAFFEINE CAPSULE ONE (17:39)
[2025-07-07] MEDS: BUTALB/ACETAMINOPHEN/CAFFEINE CAPSULE PO PRN (17:45)
[2025-07-07 18:23] VITALS: BP 150/63; TEMP 98; O2SAT 96
[2025-07-07 19:55] VITALS: BP 159/70; TEMP 98.6; O2SAT 98
[2025-07-07] MEDS: PREGABALIN 100 MG CAPSULE PO SCH (20:23)
[2025-07-07] MEDS: BLOOD SUGAR DIAGNOSTIC 1 EACH STRIP VI SCH (20:23)
[2025-07-07] MEDS: SIMVASTATIN 20 MG TABLET PO SCH (20:23)
[2025-07-07] MEDS: LATANOPROST OPHT DROP 2.5 ML BOTTLE EACHEYE SCH (20:25)
[2025-07-07] MEDS: TRAMADOL HCL 50 MG TABLET PO ONE (22:08)
[2025-07-08 00:20] VITALS: BP 220/90; TEMP 97.8; O2SAT 98
[2025-07-08] MEDS: CLONIDINE HCL 0.1 MG TABLET PO PRN (00:57)
[2025-07-08 01:00] VITALS: BP 154/89; O2SAT 97
[2025-07-08 04:45] VITALS: BP 159/64; TEMP 98.6; O2SAT 95
[2025-07-08 06:25] LABS: PLATELET COUNT (AUTO) 249 K/uL (179-408); RED BLOOD CELL COUNT(AUTO) 4.11 MIL/uL (3.63-4.92); RED CELL DISTRIBUTION WIDTH 14.1 % (12.3-17.7); WHITE BLOOD COUNT (AUTO) 6.1 K/uL (3.8-11.8)
[2025-07-08 06:42] LABS: CREATININE 0.9 mg/dL (0.6-1.3); SODIUM SERUM 146 mmol/L (136-145); UREA NITROGEN, BLOOD 9 mg/dL (7-18)
[2025-07-08] MEDS: LEVOTHYROXINE SODIUM 50 MCG TABLET PO SCH (07:00)
[2025-07-08] MEDS: PANTOPRAZOLE SODIUM 40 MG TABLET.DR PO SCH (07:00)
[2025-07-08 07:43] VITALS: BP 149/66; TEMP 98.1; O2SAT 97
[2025-07-08] MEDS ORDERED: SWABABLE VALVE TRANSFER SET EA MC ONE (08:35)
[2025-07-08] MEDS ORDERED: IOHEXOL 350 100 ML INFUS..BTL ONE (08:35)
[2025-07-08] MEDS ORDERED: IV NORMAL SALINE 0 ML IV ONE (08:37)
[2025-07-08] MEDS: CHOLECALCIFEROL 1,000 UNIT TABLET PO SCH (08:56)
[2025-07-08] MEDS: TRAMADOL HCL 50 MG TABLET PO SCH (08:56)
[2025-07-08] MEDS: CARVEDILOL 25 MG TABLET PO SCH (08:57)
[2025-07-08] MEDS: SACUBITRIL/VALSARTAN 49 MG-51 MG TABLET PO SCH (08:57)
[2025-07-08] MEDS ORDERED: CEPH500C2 PO ×2 (10:41→14:16)
[2025-07-08 11:11] VITALS: BP 115/51; TEMP 98.2; O2SAT 98
[2025-07-08] MEDS: INSULIN REGULAR, HUMAN 1000 UNIT/10 ML VIAL SQ PRN (12:24)
== END 2025-07-08 14:30 | disposition home health service (06) | DRG 305 ==
LOC: ER 09:22 → TELE3 17:29
PROVIDERS: ADMIT Student in an Organized Health Care Education/Training Program; ATTEND Student in an Organized Health Care Education/Training Program
DX: I16.0 Hypertensive urgency (principal); E03.9 Hypothyroidism, unspecified; N39.0 Urinary tract infection, site not specified; I11.9 Hypertensive heart disease without heart failure; E11.9 Type 2 diabetes mellitus without complications; E66.9 Obesity, unspecified; F32.A Depression, unspecified; Z68.34 Body mass index [BMI] 34.0-34.9, adult; Z71.3 Dietary counseling and surveillance; F41.9 Anxiety disorder, unspecified; G47.33 Obstructive sleep apnea (adult) (pediatric); Z79.84 Long term (current) use of oral hypoglycemic drugs; Z53.20 Procedure and treatment not carried out because of patient's decision for unspecified reasons; Z79.899 Other long term (current) drug therapy; Z87.442 Personal history of urinary calculi; E78.5 Hyperlipidemia, unspecified; E83.42 Hypomagnesemia; K29.70 Gastritis, unspecified, without bleeding; M15.9 Polyosteoarthritis, unspecified; Z79.890 Hormone replacement therapy; Z79.82 Long term (current) use of aspirin
CPT/HCPCS: 36415; 71045; 83605; 83735; 84100; 84443; 84484; 85025; 85651; 87086; A4606; A4663; G0378; J0696; J1650; J1815; J3475; Q9967